=== PATIENT | male | born 1995 | race Caucasian/White ===

== ENCOUNTER 2021-01-08 14:40 | Emergency (ER) | payer OTHER ==
[~2021-01-08] VITALS: Ht 170.2 cm; Wt 72.1 kg
[2021-01-08 14:49] VITALS: BP 131/86
[2021-01-08] MEDS ORDERED: IBUPROFEN 400 MG TABLET ONE (15:25)
[2021-01-08] MEDS ORDERED: IBUPROFEN 400 MG TABLET PO ONE (15:30)
== END 2021-01-08 15:41 | disposition home or self-care (01) ==
LOC: ER 14:49
DX: S80.12XA Contusion of left lower leg, initial encounter (principal); T87.9 Unspecified complications of amputation stump; W19.XXXA Unspecified fall, initial encounter; Y93.89 Activity, other specified; Y92.89 Other specified places as the place of occurrence of the external cause; Y99.8 Other external cause status
CPT/HCPCS: 73552

== ENCOUNTER 2021-01-09 16:41 | Emergency (ER) | payer MEDICARE, OTHER ==
[~2021-01-09] VITALS: Ht 170.2 cm; Wt 71.2 kg
--- NOTE | 2021-01-09 16:55 | NUR ---
THE PATIENT PRESENT TO ER FOR C/O DIARRHEA X2 DAYS, HE NOTICED BRIGHT RED BLOOD IN STOOL TODAY. PATIENT AAO X4. THE PATIENT DENIES PAIN AT THIS TIME. IN ROOM AIR AND DENIES SOB. RESPIRATION REGULAR AND UNLABORED. THE PATIENT IS ON MONITOR. VSS.
[2021-01-09 17:59] VITALS: BP 118/72
--- NOTE | 2021-01-09 18:00 | NUR ---
Patient AAO x4. Denies pain. In room air and denies sob. Repsiration regular and unlabored. Patient discharged to home in stable condition. Written and verbal after care instructions given. Patient verbalizes understanding of instruction.
== END 2021-01-09 18:01 | disposition home or self-care (01) ==
LOC: ER 16:46
DX: R19.7 Diarrhea, unspecified (principal); R19.5 Other fecal abnormalities; Z85.830 Personal history of malignant neoplasm of bone; Z89.612 Acquired absence of left leg above knee